=== PATIENT | male | born 1935 | race Caucasian/White ===

== ENCOUNTER 2016-12-31 07:09 | Observation (INO) | payer MEDICARE, BC ==
[~2016-12-31] VITALS: Ht 172.7 cm; Wt 65.0 kg
[2016-12-31] VITALS (8 sets, daily range): BP systolic 138–164; BP diastolic 60–78; PULSE 57–63; RESP 17–19; TEMP 98.1; Ht 172.7 cm; Wt 65.0 kg
--- NOTE | 2016-12-31 07:38 | ERA ---
ER Documentation Chief Complaint Date/Time DATE: 12/31/16 TIME: 07:28 Chief Complaint chest pain started this morning radiates to lower legs HPI 81-year-old male with a history of hypertension, dyslipidemia, coronary artery disease status post CABG and PCI presents to the emergency department via rescue ambulance for evaluation of chest pain. This morning he was drinking a glass of cold water when he experienced acute onset of sharp, severe left-sided chest pain which radiated down to his legs and caused him to fall to his knees. No accompanying shortness of breath, nausea, vomiting or diaphoresis. Paramedics administered aspirin and sublingual nitroglycerin which resulted in mild hypotension which is since resolved. No chest pain currently. Denies leg pain or swelling. No PND, orthopnea or exertional dyspnea. Patient reports that he was in his usual state of health until several weeks ago when he began to experience unsteadiness while walking and feels as though his legs are rubbery. Denies visual changes, focal weakness or numbness. No abdominal pain or low back pain. Denies dysuria, polyuria hematuria. No URI symptoms or cough. No fevers or chills. Ex- arrived somewhat later clarified the history. She states that patient was doing some heavy exertion and then went inside to have a drink of water and chest pain began. ROS All systems reviewed and are negative except as per history of present illness. Allergies Allergies: Coded Allergies: No Known Allergy (Unverified , 12/31/16) PMhx/Soc Reviewed in chart. As per HPI History of Surgery: Yes (CABG, PCI, exploratory laparotomy) Hx Neurological Disorder: No Hx Respiratory Disorders: No Hx Cardiac Disorders: Yes (Coronary artery disease, hypertension) Hx Psychiatric Problems: No Hx Miscellaneous Medical Probl: Yes (Hyperlipidemia) Hx Alcohol Use: No Hx Substance Use: No Hx Tobacco Use: No FmHx No diabetes, coronary artery disease, stroke or cancer Physical Exam Vitals Vital Signs Date Time Temp Pulse Resp B/P Pulse Ox O2 Delivery O2 Flow Rate FiO2 12/31/16 10:00 98.1 63 14 132/72 99 Room Air 12/31/16 08:00 98.2 60 12 127/69 99 Room Air 12/31/16 07:13 98.1 66 18 80/45 99 Physical Exam Const: Alert, elderly, no acute distress Head: Atraumatic Eyes: Pupils equal reactive to light, extraocular movements intact normal Conjunctiva ENT: Normal External Ears, Nose and Mouth. Neck: Full range of motion. Nontender. No JVD. Resp: Breath sounds are equal and clear to auscultation bilaterally Cardio: Regular rate and rhythm, no murmurs Chest Wall: Status post median sternotomy. Nontender. Abd: Soft, non tender, non distended. Normal bowel sounds Skin: No petechiae or rashes Back: No midline or flank tenderness Ext: No cyanosis, or edema. Pulses 4+ in all extremities. No calf swelling or tenderness. Neur: Awake and alert. Cranial nerves II through XII are grossly intact. Motor and sensory equal bilaterally. Psych: Normal Mood and Affect Result Diagram: 12/31/1621 12/31/16 0721 Results 24 hrs Laboratory Tests Test 12/31/16 07:21 White Blood Count 4.510^3/ul Red Blood Count 3.7910^6/ul Hemoglobin 11.6g/dl Hematocrit 35.8% Mean Corpuscular Volume 94.5fl Mean Corpuscular Hemoglobin 30.6pg Mean Corpuscular Hemoglobin Concent 32.4g/dl Red Cell Distribution Width 13.6% Platelet Count 03913^3/UL Mean Platelet Volume 10.3fl Neutrophils % 66.8% Lymphocytes % 19.6% Monocytes % 9.1% Eosinophils % 3.6% Basophils % 0.7% Nucleated Red Blood Cells % 0.0/100WBC Neutrophils # 3.010^3/ul Lymphocytes # 0.910^3/ul Monocytes # 0.410^3/ul Eosinophils # 0.210^3/ul Basophils # 0.010^3/ul Nucleated Red Blood Cells # 0.010^3/ul Prothrombin Time 13.7Sec Prothrombin Time Ratio 1.1 INR International Normalized Ratio 1.05 Activated Partial Thromboplast Time 27.5Sec Sodium Level 141mmol/L Potassium Level 4.5mmol/L Chloride Level 103mmol/L Carbon Dioxide Level 27mmol/L Anion Gap 16 Blood Urea Nitrogen 19mg/dl Creatinine 0.90mg/dl Glucose Level 102mg/dl Calcium Level 9.0mg/dl Magnesium Level 2.1mg/dl Total Bilirubin 0.3mg/dl Direct Bilirubin 0.00mg/dl Indirect Bilirubin 0.3mg/dl Aspartate Amino Transf (AST/SGOT) 20IU/L Alanine Aminotransferase (ALT/SGPT) 28IU/L Alkaline Phosphatase 66IU/L Troponin I < 0.012ng/ml Total Protein 6.6g/dl Albumin 3.7g/dl Globulin 2.90g/dl Albumin/Globulin Ratio 1.27 Thyroid Stimulating Hormone (TSH) 1.820MIU/L Current Medications Medications (Trade) Dose Ordered Sig/Luis Route PRN Reason Start Time Stop Time Status Last Admin Dose Admin Insulin Human Lispro (Humalog) 10 unit ONCE STAT SC 12/31/16 10:10 12/31/16 10:11 Cancel Ondansetron HCl (Zofran Inj) 4 mg ER BRIDGE PRN IV NAUSEA AND/OR VOMITING 12/31/16 12:00 01/01/17 11:59 Acetaminophen (Tylenol Tab) 650 mg ER BRIDGE PRN PO MILD PAIN/FEVER 12/31/16 12:00 01/01/17 11:59 EKG: TIME: 07:36. Sinus rhythm. Ventricular rate 65, normal UT and QRS intervals. No acute ST segment elevation or depression. No axis deviation or ectopy. EP Impression: Normal EKG EKG: TIME: 08:34. IMAGING: PROCEDURE: XR Chest. CLINICAL INDICATION: chest pain TECHNIQUE: Single frontal view of the chest was obtained COMPARISON: None FINDINGS: The heart and mediastinum are within normal limits. The patient is status post sternotomy. The lungs are clear. There is no pleural effusion or pneumothorax. RPTAT: AA IMPRESSION: No acute disease. .Pelon Sarmiento MD, MD Date Time Electronically viewed and signed by .Pelon Sarmiento MD, on 12/31/2016 08: 37 .S/ Procedures/MDM DOCUMENTS REVIEWED: ED nurse, no prior records MEDICAL DECISION MAKIN-year-old male with a history of hypertension, dyslipidemia, coronary artery disease status post CABG and PCI presents to the emergency department via rescue ambulance for evaluation of chest pain. No acute ischemic EKG changes or elevated troponin. Doubt pulmonary embolism or aortic dissection. No radiographic evidence of pneumonia or pneumothorax. Considering the patient's extensive cardiac history he will be admitted for serial ECGs, troponins, cardiology consultation and further risk stratification. Counseled patient and family regarding diagnosis, diagnostic results and plan for admission. CALLS/CONSULTS: Time 09:45, Dr. Rojo, Recommends admission to telemetry. PATIENT CARE TRANSITIONED: Time: 09:45, Dr. Rojo. Departure Diagnosis: Primary Impression: Acute chest pain Additional Impressions: Chest pain with moderate risk of acute coronary syndrome Hx of CABG Hx of heart artery stent Essential hypertension Dyslipidemia Condition: Serious LEATHA DUFFY MD Dec 31, 2016 07:38
[2016-12-31 08:18] LABS: BASOPHILS % 0.7 % (0.0-2.0); EOSINOPHILS # 0.2 10^3/ul (0.0-0.5); EOSINOPHILS % 3.6 % (0.0-7.0); HEMATOCRIT 35.8 % (42.0-52.0); HEMOGLOBIN 11.6 g/dl (14.0-18.0); LYMPHOCYTES # 0.9 10^3/ul (0.8-2.9); LYMPHOCYTES % 19.6 % (15.0-51.0); MEAN CORPUSCULAR HEMOGLOBIN 30.6 pg (29.0-33.0); MEAN CORPUSCULAR HGB CONC 32.4 g/dl (32.0-37.0); MEAN CORPUSCULAR VOLUME 94.5 fl (82.0-101.0); MEAN PLATELET VOLUME 10.3 fl (7.4-10.4); MONOCYTE # 0.4 10^3/ul (0.3-0.9); MONOCYTES % 9.1 % (0.0-11.0); NEUTROPHILS % 66.8 % (39.0-77.0); PLATELET COUNT 137 10^3/UL (140-415); RED BLOOD COUNT 3.79 10^6/ul (4.70-6.10); RED CELL DISTRIBUTION WIDTH 13.6 % (11.5-14.5); WHITE BLOOD COUNT 4.5 10^3/ul (4.8-10.8)
[2016-12-31 08:37] LABS: ALANINE AMINOTRANSFERASE 28 IU/L (13-69); ALBUMIN 3.7 g/dl (3.3-4.9); ALBUMIN/GLOBULIN RATIO 1.27; ALKALINE PHOSPHATASE 66 IU/L (42-121); ANION GAP 16 (8-16); ASPARTATE AMINO TRANSFERASE 20 IU/L (15-46); BILIRUBIN,INDIRECT 0.3 mg/dl (0-1.1); BILIRUBIN,TOTAL 0.3 mg/dl (0.2-1.3); BLOOD UREA NITROGEN 19 mg/dl (7-20); CARBON DIOXIDE 27 mmol/L (21-31); CHLORIDE 103 mmol/L (97-110); GLUCOSE 102 mg/dl (70-220); POTASSIUM 4.5 mmol/L (3.5-5.1); SODIUM 141 mmol/L (135-144); TOTAL PROTEIN 6.6 g/dl (6.1-8.1)
--- NOTE | 2016-12-31 08:37 | RADRPT ---
PROCEDURE: XR Chest. CLINICAL INDICATION: chest pain TECHNIQUE: Single frontal view of the chest was obtained COMPARISON: None FINDINGS: The heart and mediastinum are within normal limits. The patient is status post sternotomy. The lungs are clear. There is no pleural effusion or pneumothorax. RPTAT: AA IMPRESSION: No acute disease. .Pelon Sarmiento MD, MD Date Time Electronically viewed and signed by .Pelon Sarmiento MD, on 12/31/2016 08:37 .S/
[2016-12-31 08:48] LABS: INR 1.05; PARTIAL THROMBOPLASTIN TIME 27.5 Sec (25.0-35.0); PROTIME 13.7 Sec (12.2-14.2); PT RATIO 1.1
[2016-12-31 08:57] LABS: TROPONIN-I < 0.012 ng/ml (0.00-0.12)
[2016-12-31] MEDS ORDERED: INSULIN LISPRO 100 UNIT/ML VIAL SC STA (10:10)
[2016-12-31 10:16] LABS: MAGNESIUM 2.1 mg/dl (1.7-2.5)
[2016-12-31 10:47] LABS: THYROID STIMULATING HORMONE 1.82 MIU/L (0.465-4.680)
[2016-12-31] MEDS ORDERED: ONDANSETRON 4 MG INJ IV PRN ×2 (12:00→12:30)
[2016-12-31] MEDS ORDERED: ACETAMINOPHEN 325 MG TAB PO PRN ×2 (12:00→12:30)
[2016-12-31] MEDS ORDERED: NITROGLYCERIN (SL) 0.4 MG TAB SL PRN (12:30)
[2016-12-31] MEDS ORDERED: DOCUSATE SODIUM 100 MG CAP PO PRN (12:30)
[2016-12-31] MEDS ORDERED: NACL 0.9% 3 ML SYG IV SCH (12:30)
[2016-12-31] MEDS ORDERED: morphine 4 MG/ML VIAL IV PRN (12:30)
[2016-12-31] MEDS ORDERED: ACETAMINOPHEN 650 MG SUPP PR PRN (12:30)
[2016-12-31] MEDS ORDERED: hydrALAzine 20 MG INJ IV PRN (12:30)
--- NOTE | 2016-12-31 12:35 | HP ---
Date/Time of Note Date/Time of Note DATE: 12/31/16 TIME: 12:26 Assessment/Plan VTE Prophylaxis VTE Prophylaxis Intervention: LMWH Lines/Catheters IV Catheter Type (from [facility]): Saline Lock Assessment/Plan Assessment/Plan This is a 81-year-old male who was brought to the emergency room by paramedics for evaluation of chest pain with progressive bilateral lower extremity numbness and weakness. 1. Chest pain, rule out ACS versus other. -Admit to telemetry. Rule out ACS with serial troponin, 2D echocardiogram, serial EKG. Also obtain cardiology consult based on risk factors. -Start aspirin, nitroglycerin sublingual PRN, morphine PRN, and hydralazine PRN for SBP greater than 160. 2. Lower extremity numbness/weakness, likely peripheral neuropathy. Patient also reported that he had history of bilateral carotid stenosis and status post left endarterectomy. -Obtain carotid duplex, vitamin D level and B12. 3. Essential hypertension. -Resume home medications once list is obtained. For now, he will be treated with hydralazine PRN 3. Coronary artery disease, status post CABG, PCI. -Continue aspirin for now. Will resume home medications once obtained. 4. Hypercholesterolemia. -We will resume home medications. Obtain lipid panel. DVT prophylaxis: Lovenox PUD prophylaxis: Pepcid. Plan: Patient will be admitted to telemetry. He will be started on a diet. We will rule out acute coronary syndrome. Follow-up with carotid ultrasound to find out the status of flow as patient is experiencing numbness and tingling. Follow-up with a.m. labs. Follow-up with cardiology recommendations. Rest of the management depend on clinical course, further studies and input from consultant education. Approximately 60 minutes was spent on this history and physical. Case discussed with . 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 According to the patient, his symptoms started off with a sharp left-sided chest pain with left leg weakness and numbness this morning while he was attempting to drink a glass of cold water. Patient has been having progressive bilateral lower extremity burning, tingling and numbness and he was supposed to see his primary care physician today for evaluation. Patient denied nausea, vomiting, palpitation, abdominal discomfort ,shortness of breath, edema, orthopnea, exertional dyspnea or PND. He denied any fever or chills. Patient also denied any loss of consciousness, dizziness, headache, speech difficulties, or any focal deficit. Initial labs within acceptable range. Troponin was negative. Initial vital signs temperature 98.1, pulse rate 66, respiratory rate 18, blood pressure 80/45 , oxygen saturation 99%. Of note, blood pressure drop noticed post patient was given aspirin and nitro by EMS. Repeat blood pressure showed 127/69. Twelve- lead EKG with sinus rhythm without any acute ST or T-wave changes. Chest x-ray negative for any acute cardiopulmonary disease. Patient was admitted for further evaluation. ROS A 12 point review of system was assessed and is negative other than what is mentioned in HPI. PMH/Family/Social Past Medical History See HPI Past Surgical History See HPI Social History Denied smoking, alcohol or illicit drug use. Smoking Status: Never smoker Exam/Review of Systems Vital Signs Vitals Vital Signs Date Time Temp Pulse Resp B/P Pulse Ox O2 Delivery O2 Flow Rate FiO2 12/31/16 10:00 98.1 63 14 132/72 99 Room Air Exam Exam General: Elderly male, not in any acute distress . HEENT: Normocephalic, Atraumatic, No laceration or hematoma; Eyes: PEERL, Conjunctiva clear, Anicteric sclera Neck: Supple without any lymphadenopathy, nontender, no JVD, no carotid bruits, trachea midline, no thyromegaly Cardiac: S1, S2 auscultated, regular rhythm and rate, no mumurs or gallop Pulmonary: Normal respiratory effort. Chest clear to auscultation bilaterally, no adventitious breath sounds GI: Abdomen normal to inspection. Soft, non tender, non- distended, no masses, no rebound tenderness or guarding. Bowel sounds active on all four quadrants Genitourinary: Deferred Extremities: No cyanosis, clubbing, or edema. Pulses [2+] bilaterally. Full ROM on all four extremities. No focal weakness appreciated. Neurologic: Alert to person, place, time, and situation. Affect appropriate, intact sensation. Skin: Clean,dry, and intact. No ecchymosis, no rashes, or lesions Labs Result Diagram: 12/31/1672012/31/16 0721 KRYSTINA PEARSON NP Dec 31, 2016 12:35 KRYSTINA PEARSON NP Dec 31, 2016 12:35
--- NOTE | 2016-12-31 13:09 | CONS ---
Date/Time of Note Date/Time of Note DATE: 12/31/16 TIME: 13:05 Assessment/Plan Assessment/Plan Chief Complaint/Hosp Course Assessment: Chest pain Coronary artery disease, status post CABG and PCI - details unknown Hypertension Dyslipidemia Carotid disease - status post stenting on left, right is chronically occluded Recommendations: -telemetry monitoring -serial troponins -transthoracic echocardiogram -if ruled out for myocardial infarction, will defer repeat coronary evaluation as patient reports having normal cardiac stress test last year -continue aspirin 81mg daily -continue atorvastatin 40mg daily -continue amlodipine 5mg BID, carvedilol 12.5mg BID, losartan 100mg daily Problems: Consultation Date/Type/Reason Admit Date/Time Type of Consultation: Cardiology Reason for Consultation chest pain Hx of Present Illness The patient is a 81 year-old male who presents with chest pain. He reports having a sharp left-sided chest pain while taking out the garbage this morning. This was associated with left upper and lower extremity weakness and numbness. His symptoms lasted for several seconds and then resolved. He denies shortness of breath or exertional symptoms. He has a history of CABG and PCI, but he does not recall the details. He reports having a cardiac stress test last year, which was normal. 14 point review of systems negative other than per HPI. Past Medical History Coronary artery disease, status post CABG and PCI - details unknown Hypertension Dyslipidemia Carotid disease - status post stenting on left, right is chronically occluded Past Surgical History CABG Family History Significant Family History: no pertinent family hx Social History Alcohol Use: none Smoking Status: Never smoker Drug Use: none Exam/Review of Systems Vital Signs Vitals Vital Signs Date Time Temp Pulse Resp B/P Pulse Ox O2 Delivery O2 Flow Rate FiO2 12/31/16 12:50 97.8 63 17 157/78 98 Room Air Exam Constitutional: alert, well developed Psych: nl mood/affect, no complaints Head: atraumatic, normocephalic Eyes: nl conjunctiva, nl lids ENMT: nl external ears & nose, nl nasal mucosa & septum Neck: non-tender, supple Respiratory: clear to auscultation, normal air movement Cardiovascular: regular rate and rhythm Gastrointestinal: non-tender, soft Musculoskeletal: nl extremities to inspection Extremities: No clubbing, No cyanosis, No edema Neurological: nl mental status, nl speech Skin: nl turgor Results Result Diagram: 12/31/16 0721 12/31/16 0721 Results 24 hrs Laboratory Tests Test 12/31/16 07:21 White Blood Count 4.5 L Red Blood Count 3.79 L Hemoglobin 11.6 L Hematocrit 35.8 L Mean Corpuscular Volume 94.5 Mean Corpuscular Hemoglobin 30.6 Mean Corpuscular Hemoglobin Concent 32.4 Red Cell Distribution Width 13.6 Platelet Count 137 L Mean Platelet Volume 10.3 Neutrophils % 66.8 Lymphocytes % 19.6 Monocytes % 9.1 Eosinophils % 3.6 Basophils % 0.7 Nucleated Red Blood Cells % 0.0 Neutrophils # 3.0 Lymphocytes # 0.9 Monocytes # 0.4 Eosinophils # 0.2 Basophils # 0.0 Nucleated Red Blood Cells # 0.0 Prothrombin Time 13.7 Prothrombin Time Ratio 1.1 INR International Normalized Ratio 1.05 Activated Partial Thromboplast Time 27.5 Sodium Level 141 Potassium Level 4.5 Chloride Level 103 Carbon Dioxide Level 27 Anion Gap 16 Blood Urea Nitrogen 19 Creatinine 0.90 Glucose Level 102 Calcium Level 9.0 Magnesium Level 2.1 Total Bilirubin 0.3 Direct Bilirubin 0.00 Indirect Bilirubin 0.3 Aspartate Amino Transf (AST/SGOT) 20 Alanine Aminotransferase (ALT/SGPT) 28 Alkaline Phosphatase 66 Troponin I < 0.012 Total Protein 6.6 Albumin 3.7 Globulin 2.90 Albumin/Globulin Ratio 1.27 Thyroid Stimulating Hormone (TSH) 1.820 Medications Medications Current Medications Ondansetron HCl (Zofran Inj) 4 mg Q6H PRN IV NAUSEA AND/OR VOMITING; Start 12/31 at 12:30 Acetaminophen (Tylenol Tab) 650 mg Q6H PRN PO PAIN LEVEL 1-3 OR FEVER; Start at 12:30 Acetaminophen (Tylenol Supp) 650 mg Q6H PRN SD PAIN LEVEL 1-3 OR FEVER; Start 12/31/16 at 12:30 Morphine Sulfate (morphine) 2 mg Q4H PRN IV SEVERE PAIN LEVEL 7-10; Start at 12:30 Docusate Sodium (Colace) 100 mg Q12H PRN PO CONSTIPATION; Start 12/31/16 at 12: 30 Famotidine (Pepcid) 20 mg Q12 PO ; Start 12/31/16 at 14:00 Enoxaparin Sodium (Lovenox) 40 mg DAILY SC ; Start 12/31/16 at 14:00 Aspirin (Aspirin) 81 mg DAILY PO ; Start 12/31/16 at 14:00 Nitroglycerin (Nitroglycerin (Sl Tab) 0.4 Mg) 1 tab Q5M PRN SL ANGINA; Start at 12:30 Hydralazine HCl (Apresoline) 10 mg Q6H PRN IV sbp>160; Start 12/31/16 at 12:30 TATI MATHEWS MD Dec 31, 2016 13:09
[2016-12-31 14:17] LABS: CREATINE KINASE 29 IU/L (23-200)
[2016-12-31 14:31] LABS: CK-MB 0.58 ng/ml (0.0-2.4); TROPONIN-I < 0.012 ng/ml (0.00-0.12)
[2016-12-31] MEDS: FAMOTIDINE 20 MG TAB PO SCH ×2 (14:42→21:41)
[2016-12-31] MEDS: ASPIRIN 81 MG TAB PO SCH (14:42)
[2016-12-31] MEDS: ENOXAPARIN 40 MG/0.4 ML SYG SC SCH (14:43)
--- NOTE | 2016-12-31 14:45 | RADRPT ---
PROCEDURE: US Carotids. CLINICAL INDICATION: bruit , tingling/numbness on extremities TECHNIQUE: Multiple sonographic of the carotid bifurcation region and vertebral arteries were obta ined utilizing fox scale, duplex and color-flow imaging. The images were reviewed on a PACS worksta tion. COMPARISON: No prior studies are available for comparison. FINDINGS: Evaluation of the right carotid bifurcation region reveals moderate calcific atherosclerotic disease . Evaluation of the left carotid bifurcation region reveals mild to moderate calcific atherosclerotic disease. There is antegrade flow within the vertebral arteries bilaterally. RIGHT CAROTID MEASUREMENTS: Common Carotid Kvlqit99.9 (cm/sec) Internal Carotid Artery - occluded LEFT CAROTID MEASUREMENTS: Common Carotid Loaqxu89.1 (cm/sec) Internal Carotid Artery - (cm/sec) Internal Carotid Artery - mid67.4 (cm/sec) Internal Carotid Artery - swlapn27.2 (cm/sec) Internal Carotid/Common Carotid1.22 RPTAT: AA IMPRESSION: Occluded right ICA. - validated velocity measurements with angiographic measurements, velocity crite jolie are extrapolated from diameter data as defined by the Society of Radiologists in Ultrasound Cons ensus Conference Radiology 2003; 229;340-346. This study does indirectly reference the measurement of the distal ICA diameter as the denominator for stenosis measurement. Normal antegrade flow in the vertebral arteries bilaterally. Further evaluation with a CT angiogram is recommended. .Pelon Sarmiento MD, MD Date Time Electronically viewed and signed by .Pelon Sarmiento MD, MD on 12/31/2016 14:45 .S/
[2016-12-31] MEDS ORDERED: AMLO2.5T78 PO (14:53)
[2016-12-31] MEDS ORDERED: ASPI81TA3 PO (14:53)
[2016-12-31] MEDS ORDERED: CLON-379 PO (14:53)
[2016-12-31] MEDS ORDERED: ATOR10TA65 PO (14:53)
[2016-12-31] MEDS ORDERED: LOSA100T7 PO (14:53)
[2016-12-31] MEDS ORDERED: CARV12.579 PO (14:53)
[2016-12-31 20:31] LABS: CREATINE KINASE 24 IU/L (23-200)
[2016-12-31 20:40] LABS: CK-MB 0.75 ng/ml (0.0-2.4); TROPONIN-I < 0.012 ng/ml (0.00-0.12)
[2016-12-31] MEDS ORDERED: ATORVASTATIN 40 MG TAB PO SCH (21:00)
[2016-12-31] MEDS: AMLODIPINE 5 MG TAB PO SCH (21:41)
[2017-01-01 00:32] VITALS: PULSE 61
[2017-01-01 04:14] VITALS: PULSE 55
[2017-01-01 07:27] LABS: BASOPHILS % 0.6 % (0.0-2.0); EOSINOPHILS # 0.1 10^3/ul (0.0-0.5); EOSINOPHILS % 1.7 % (0.0-7.0); HEMATOCRIT 37.4 % (42.0-52.0); HEMOGLOBIN 12.3 g/dl (14.0-18.0); LYMPHOCYTES # 0.9 10^3/ul (0.8-2.9); LYMPHOCYTES % 18.2 % (15.0-51.0); MEAN CORPUSCULAR HEMOGLOBIN 30.9 pg (29.0-33.0); MEAN CORPUSCULAR HGB CONC 32.9 g/dl (32.0-37.0); MONOCYTE # 0.5 10^3/ul (0.3-0.9); NEUTROPHIL # 3.2 10^3/ul (1.6-7.5); NEUTROPHILS % 69.3 % (39.0-77.0); PLATELET COUNT 131 10^3/UL (140-415); POSITIVE DIFF @See below; RED BLOOD COUNT 3.98 10^6/ul (4.70-6.10); RED CELL DISTRIBUTION WIDTH 13.6 % (11.5-14.5); WHITE BLOOD COUNT 4.7 10^3/ul (4.8-10.8)
[2017-01-01 07:51] LABS: ALBUMIN 3.8 g/dl (3.3-4.9); ALBUMIN/GLOBULIN RATIO 1.35; BILIRUBIN,INDIRECT 0.4 mg/dl (0-1.1); BILIRUBIN,TOTAL 0.4 mg/dl (0.2-1.3); CHOL/HDL RATIO 4.2 RATIO; CREATININE 0.79 mg/dl (0.61-1.24); POTASSIUM 4.4 mmol/L (3.5-5.1); TOTAL PROTEIN 6.6 g/dl (6.1-8.1)
[2017-01-01 08:09] VITALS: PULSE 60
[2017-01-01] MEDS: AMLODIPINE 5 MG TAB PO SCH (08:10)
[2017-01-01] MEDS: FAMOTIDINE 20 MG TAB PO SCH (08:10)
[2017-01-01] MEDS: ASPIRIN 81 MG TAB PO SCH (08:10)
[2017-01-01 08:12] VITALS: BP 159/72; RESP 17
[2017-01-01] MEDS: ENOXAPARIN 40 MG/0.4 ML SYG SC SCH (08:12)
[2017-01-01] MEDS ORDERED: LOSARTAN 50 MG TAB PO SCH (09:00)
[2017-01-01 09:19] LABS: THYROID STIMULATING HORMONE 1.11 MIU/L (0.465-4.680)
--- NOTE | 2017-01-01 09:52 | PDOCDIS ---
Discharge Instructions CONDITION Patient Condition: Stable HOME CARE INSTRUCTIONS: Diet Instructions: Low Fat /Cholesterol FOLLOW UP/APPOINTMENTS Follow-up Plan 1.Follow up with primary care physician in 1 week If you don't have one please let someone know, we can give you resources that may help you pick one. You may also call your insurance company to assign one to you. Review your medication list with your nurse before leaving and if you need new prescriptions please let your nurse know. I may have made changes to your home medications or given you new prescriptions, please let your primary doctor know as well. Stay compliant with your medications and report any side effects to your PCP or pharmacist. Return to the ER if you have any concerns and cannot reach your doctors or call your insurance company, they usually have a nurse that can help you. 2. Call 911 or go to the nearest emergency room if experiencing loss of consciousness, dizziness, chest pain, shortness of breath, vomiting/abdominal pain, speech difficulties, motor weakness or any unusual symptoms. KRYSTINA PEARSON NP Jan 01, 2017 09:52
[2017-01-01] MEDS ORDERED: CHOL100062 PO (09:55)
[2017-01-01] MEDS ORDERED: ERGO500037 PO (09:59)
--- NOTE | 2017-01-01 10:53 | DS ---
Date/Time of Note Date/Time of Note DATE: 01/01/17 TIME: 10:49 Discharge Summary Admission/Discharge Info Admit Date/Time Dec 31, 2016 at 12:30 Discharge Date/Time Discharge Diagnosis Chest pain, noncardiac. 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 Coronary artery disease, status post CABG and PCI - details unknown MVR, bioprosthesis Hypertension Dyslipidemia Bilateral carotid disease - status post left endarterectomy, right is chronically occluded Patient Condition: Stable Consults ,cardiology Procedures 12/31/2016. Ultrasound carotid. Occluded right ICA. - validated velocity measurements with angiographic measurements, velocity criteria are extrapolated from diameter data as defined by the Society of Radiologists in Ultrasound Consensus Conference Radiology 2003 ; 229;340-346. This study does indirectly reference the measurement of the distal ICA diameter as the denominator for stenosis measurement. Normal antegrade flow in the vertebral arteries bilaterally. 12/31/2016. Chest x-ray. No acute disease. 12/31/2016. 2D echocardiogram Conclusions 1. The left ventricle is normal in size with normal overall systolic function. The inferolateral wall is hypokinetic. 2. Estimated left ventricular ejection fraction of 55%. 3. Mitral valve bioprosthesis with normal function. 4. Mild left atrial enlargement. Hospital Course This is a 81-year-old male with a past medical history of coronary artery disease, status post CABG, PTCA with stents post CABG, hypercholesterolemia, essential hypertension, carotid artery disease with 100% occluded right carotid artery, left endarterectomy, explored lap, who presented to the emergency room with complaints of left-sided chest pain associated with left leg weakness and numbness. Patient has been having progressive bilateral lower extremity burning, tingling and numbness and was supposed to see his primary care provider for evaluation. However he noticed chest pain in the morning and decided to come to the emergency room for evaluation. Chest pain was not associated with any exertion or activities. There was no shortness of breath. Patient denied any focal neuro deficit or other constitutional symptoms. Initial troponin was negative. Vital signs within acceptable range. EKG without any ST or T-wave changes. Chest x-ray negative for any acute cardiopulmonary disease. Patient was admitted for ruling out ACS. A cardiology consultation was requested due to high risk factors. He was continued on aspirin, nitroglycerin sublingual PRN and morphine PRN. Home medications resumed. Patient was started on a diet. He was given pain medications as needed. Serial troponin, serial EKG negative for any ischemic events. 2D echocardiogram was repeated. A carotid ultrasound revealed occluded right carotid artery which is chronic in nature. Patient was evaluated by cardiology and determined his symptoms were noncardiac in origin. There was no recommendation for further coronary evaluation as he had a negative Lexiscan stress test which was an year ago. A repeat TTE with preserved ejection fraction. Echocardiogram also revealed presence of bile mitral valve prosthesis which functions normally. Labs revealed a low vitamin D level and this could explain his neuropathic sensation on lower extremities. Chest pain was resolved. Acute coronary syndrome ruled out. As per cardiology , patient is stable for discharge. At this time, patient feels back to baseline and no further inpatient workup is indicated. Disposition: Patient will be discharged home today. She was he was instructed to follow-up with his primary care provider. He was started on vitamin D supplement and was instructed to follow-up with his primary care physician in 1 month to repeat vitamin D level and to adjust dose as indicated. Patient verbalized discharge instructions. Condition at time of discharge is stable. Approximately 60 minutes was spent in coordinating the discharge on this patient. Case discussed with . Home Meds Active Scripts Ergocalciferol (Vitamin D2) (VITAMIN D2) 50,000 Unit Capsule, [address] UNIT PO .EVERY FRIDAY, #4 CAP 2 Refills Prov:KRYSTINA PEARSON Heydi [employer] 01/01/17 Reported Medications Clonidine Hcl* (Clonidine Hcl*) 0.1 Mg Tab, 0.1 MG PO Q1HR Y for ELEVATED BLOOD PRESSURE, TAB 12/31/16 Atorvastatin Calcium (Atorvastatin Calcium) 10 Mg Tablet, 40 MG PO QHS, #30 TAB 12/31/16 Losartan Potassium* (Losartan Potassium*) 100 Mg Tablet, 100 MG PO DAILY, TAB 12/31/16 Aspirin* (Aspirin* Chew) 81 Mg Tab.chew, 81 MG PO DAILY, TAB.CHEW 12/31/16 Carvedilol* (Carvedilol*) 12.5 Mg Tablet, 12.5 MG PO BID, #60 TAB 12/31/16 Amlodipine Besylate* (Amlodipine Besylate*) 2.5 Mg Tablet, 5 MG PO BID, #30 TAB 12/31/16 Follow-up Plan FOLLOW UP/APPOINTMENTS Follow-up Plan 1.Follow up with primary care physician in 1 week If you don't have one please let someone know, we can give you resources that may help you pick one. You may also call your insurance company to assign one to you. Review your medication list with your nurse before leaving and if you need new prescriptions please let your nurse know. I may have made changes to your home medications or given you new prescriptions, please let your primary doctor know as well. Stay compliant with your medications and report any side effects to your PCP or pharmacist. Return to the ER if you have any concerns and cannot reach your doctors or call your insurance company, they usually have a nurse that can help you. 2. Call 911 or go to the nearest emergency room if experiencing loss of consciousness, dizziness, chest pain, shortness of breath, vomiting/abdominal pain, speech difficulties, motor weakness or any unusual symptoms. Primary Care Provider Not On Staff Doctor Pending Labs Laboratory Tests Test 12/31/16 13:43 12/31/16 19:46 01/01/17 05:00 01/01/17 07:03 Creatine Kinase 29IU/L (23-200) 24IU/L (23-200) Creatine Kinase Index 2.0 3.1 Creatinine Kinase MB (Mass) 0.58ng/ml (0.0-2.4) 0.75ng/ml (0.0-2.4) Troponin I < 0.012ng/ml (0.00-0.12) < 0.012ng/ml (0.00-0.12) Hemoglobin A1c 5.0% (0-5.9) White Blood Count 4.710^3/ul (4.8-10.8) Red Blood Count 3.9810^6/ul (4.70-6.10) Hemoglobin 12.3g/dl (14.0-18.0) Hematocrit 37.4% (42.0-52.0) Mean Corpuscular Volume 94.0fl (82.0-101.0) Mean Corpuscular Hemoglobin 30.9pg (29.0-33.0) Mean Corpuscular Hemoglobin Concent 32.9g/dl (32.0-37.0) Red Cell Distribution Width 13.6% (11.5-14.5) Platelet Count 58277^3/UL (140-415) Mean Platelet Volume 10.0fl (7.4-10.4) Neutrophils % 69.3% (39.0-77.0) Lymphocytes % 18.2% (15.0-51.0) Monocytes % 10.0% (0.0-11.0) Eosinophils % 1.7% (0.0-7.0) Basophils % 0.6% (0.0-2.0) Nucleated Red Blood Cells % 0.0/100WBC (0.0-0.0) Neutrophils # 3.210^3/ul (1.6-7.5) Lymphocytes # 0.910^3/ul (0.8-2.9) Monocytes # 0.510^3/ul (0.3-0.9) Eosinophils # 0.110^3/ul (0.0-0.5) Basophils # 0.010^3/ul (0.0-0.1) Nucleated Red Blood Cells # 0.010^3/ul (0.0-0.0) Sodium Level 141mmol/L (135-144) Potassium Level 4.4mmol/L (3.5-5.1) Chloride Level 104mmol/L (97-110) Carbon Dioxide Level 26mmol/L (21-31) Anion Gap 15 (8-16) Blood Urea Nitrogen 14mg/dl (7-20) Creatinine 0.79mg/dl (0.61-1.24) Glucose Level 90mg/dl (70-220) Calcium Level 9.0mg/dl (8.4-10.2) Phosphorus Level 3.0mg/dl (2.5-4.9) Magnesium Level 2.0mg/dl (1.7-2.5) Total Bilirubin 0.4mg/dl (0.2-1.3) Direct Bilirubin 0.00mg/dl (0.00-0.20) Indirect Bilirubin 0.4mg/dl (0-1.1) Aspartate Amino Transf (AST/SGOT) 24IU/L (15-46) Alanine Aminotransferase (ALT/SGPT) 32IU/L (13-69) Alkaline Phosphatase 72IU/L (42-121) Total Protein 6.6g/dl (6.1-8.1) Albumin 3.8g/dl (3.3-4.9) Globulin 2.80g/dl (1.3-3.2) Albumin/Globulin Ratio 1.35 Triglycerides Level 101mg/dl (0-149) Cholesterol Level 144mg/dl (100-200) LDL Cholesterol, Calculated 90mg/dl HDL Cholesterol 34mg/dl (31-75) Cholesterol/HDL Ratio 4.2RATIO Vitamin B12 Level 538pg/ml (239-931) Vitamin D 1,25-Dihydroxy 20.2ng/ml (30-100) Thyroid Stimulating Hormone (TSH) 1.110MIU/L (0.465-4.680) KRYSTINA PEARSON NP Jan 01, 2017 10:53
[2017-01-01] MEDS ORDERED: ERGOCALCIFEROL 50,000 UNIT CAP PO SCH (12:00)
[2017-01-01 12:08] VITALS: PULSE 60
[2017-01-01 12:11] VITALS: BP 108/56; RESP 17
--- NOTE | 2017-01-01 14:06 | RADRPT ---
Echocardiogram Report Patient Name: LANCE SINGLETON Gender: Male Date: 1935 Study Date: 31-Dec-2016 Putty Remover: Dylan Lora [facility] Location: [id number] Ref. Physician: KRYSTINA PEARSON Quality: Good Procedures: Transthoracic echocardiogram with complete 2D, M-Mode, and doppler examination. Indications: Chest Pain. 2D/M Mode Doppler Measurement Value Normal Ranges Measurement Value Normal Ranges LVIDd 2D 4.2 3.5 - 5.6 cm ALBERTO Vmax 2.2 cm2 LVIDs 2D 3.5 2.1 - 4.1 cm ALBERTO VTI 2.2 cm2 LVPWd 2D 1.1 0.6 - 1.1 cm AV Peak Ashish 1.2 m/sec IVSd 2D 1.0 0.6 - 1.1 cm AV Peak PG 5.4 mmHg AoR Diam 2D 3.5 2.0 - 3.7 cm AI Peak PG 21.3 mmHg EDV 2D 79.2 cm3 AI Peak Ashish 2.3 m/sec ESV 2D 41.2 cm3 AI PHT 491.9 msec LA Dimen 2D 3.8 2.3 - 4.0 cm LVOT Peak Ashish 0.6 m/sec LVOT Diam 2.2 cm LVOT Peak PG 1.6 mmHg MV E Peak Ashish 1.8 m/sec MV A Peak Ashish 0.4 m/sec MV E/A 4.1 MV Peak Ashish 1.9 m/sec MV Peak PG 14.5 mmHg MV Mean Ashish 0.9 m/sec MV Mean PG 4.2 mmHg MV Decel Time 289 msec MV Decel [place] 6 MV E/A 4.1 MV VTI 48.7 cm TR Peak Ashish 3.1 m/sec TR Peak PG 38.9 mmHg RVSP 42.0 mmHg Findings Left Ventricle: Normal left ventricular systolic function. Normal left ventricular cavity size. Ejection fraction is visually estimated at 55 %. Tissue Doppler/Mitral Doppler indices are indeterminate in this study due to the presence of mitral valve replacement. These segments of the LV are hypokinetic inferolateral mid segment. Right Ventricle: Normal right ventricular size. Normal right ventricular systolic function. Left Atrium: There is mild enlargement of left atrium. Right Atrium: The right atrium is normal in size. Mitral Valve: No mitral valve regurgitation is seen. Mitral Valve Bio Prosthesis. Mitral valve Max Velocity 1.90 m/sec. MaxPG 14.50 mmHg. MeanPG 4.20 mmHg. Aortic Valve: No hemodynamically significant aortic stenosis by doppler. Aortic cusps appear moderately calcified. Mild aortic valve regurgitation. Tricuspid Valve: Normal appearance of the tricuspid valve. Estimated peak PA systolic pressure 42 mmHg. There is mild tricuspid regurgitation. Pulmonic Valve: Normal pulmonic valve appearance. There is trace pulmonic regurgitation. Pericardium: Normal pericardium with no significant pericardial effusion. Aorta: Normal aortic root. IVC: Normal size and normal respiratory collapse consistent with normal right atrial pressure. Conclusions 1.The left ventricle is normal in size with normal overall systolic function. The inferolateral wall is hypokinetic. 2.Estimated left ventricular ejection fraction of 55%. 3.Mitral valve bioprosthesis with normal function. 4.Mild left atrial enlargement. Electronically Signed By: Evert Hammond 01-Jan-2017 14:05:31 -0700 Patient Name: LANCE SINGLETON Study Date: 31-Dec-2016 [id number]
--- NOTE | 2017-01-01 15:26 | CONS ---
Date/Time of Note Date/Time of Note DATE: 01/01/17 TIME: 15:24 Assessment/Plan Assessment/Plan Chief Complaint/Hosp Course Assessment: Chest pain - ruled out for myocardial infarction Coronary artery disease, status post CABG and PCI - details unknown Bioprosthetic mitral valve replacement - normal function on echocardiogram Hypertension Dyslipidemia Carotid disease - status post stenting on left, right is chronically occluded Recommendations: -echocardiogram showed LVEF 55% with inferolateral hypokinesis (consistent with coronary artery disease), mitral valve bioprosthesis with normal function -will defer repeat coronary evaluation as patient reports having normal cardiac stress test within past year, no further inpatient cardiac work up at this time -continue aspirin 81mg daily -continue atorvastatin 40mg daily -continue amlodipine 5mg BID, carvedilol 12.5mg BID, losartan 100mg daily Problems: Consultation Date/Type/Reason Admit Date/Time Dec 31, 2016 at 12:30 Initial Consult Date Type of Consultation: Cardiology 24 HR Interval Summary Free Text/Dictation No acute events. No further chest pain. Troponins negative x 3. Detailed Summary Additional Comments 14 point review of systems without changes. Exam/Review of Systems Vital Signs Vitals Vital Signs Date Time Temp Pulse Resp B/P Pulse Ox O2 Delivery O2 Flow Rate FiO2 01/01/17 12:11 98.1 63 17 108/56 97 12/31/16 18:32 Room Air Intake and Output 12/31/16 12/31/16 01/01/17 15:00 23:00 07:00 Intake Total 850 ml 400 ml Balance 850 ml 400 ml Exam Constitutional: alert, well developed Psych: nl mood/affect, no complaints Head: atraumatic, normocephalic Eyes: nl conjunctiva, nl lids ENMT: nl external ears & nose, nl nasal mucosa & septum Neck: non-tender, supple Respiratory: clear to auscultation, normal air movement Cardiovascular: regular rate and rhythm Gastrointestinal: non-tender, soft Musculoskeletal: nl extremities to inspection Extremities: No clubbing, No cyanosis, No edema Neurological: nl mental status, nl speech Skin: nl turgor Results Result Diagram: 01/01/17 0703 01/01/17 0703 Results 24 hrs Laboratory Tests Test 12/31/16 19:46 01/01/17 05:00 01/01/17 07:03 Creatine Kinase 24 Creatine Kinase Index 3.1 Creatinine Kinase MB (Mass) 0.75 Troponin I < 0.012 Hemoglobin A1c 5.0 White Blood Count 4.7 L Red Blood Count 3.98 L Hemoglobin 12.3 L Hematocrit 37.4 L Mean Corpuscular Volume 94.0 Mean Corpuscular Hemoglobin 30.9 Mean Corpuscular Hemoglobin Concent 32.9 Red Cell Distribution Width 13.6 Platelet Count 131 L Mean Platelet Volume 10.0 Neutrophils % 69.3 Lymphocytes % 18.2 Monocytes % 10.0 Eosinophils % 1.7 Basophils % 0.6 Nucleated Red Blood Cells % 0.0 Neutrophils # 3.2 Lymphocytes # 0.9 Monocytes # 0.5 Eosinophils # 0.1 Basophils # 0.0 Nucleated Red Blood Cells # 0.0 Sodium Level 141 Potassium Level 4.4 Chloride Level 104 Carbon Dioxide Level 26 Anion Gap 15 Blood Urea Nitrogen 14 Creatinine 0.79 Glucose Level 90 Calcium Level 9.0 Phosphorus Level 3.0 Magnesium Level 2.0 Total Bilirubin 0.4 Direct Bilirubin 0.00 Indirect Bilirubin 0.4 Aspartate Amino Transf (AST/SGOT) 24 Alanine Aminotransferase (ALT/SGPT) 32 Alkaline Phosphatase 72 Total Protein 6.6 Albumin 3.8 Globulin 2.80 Albumin/Globulin Ratio 1.35 Triglycerides Level 101 Cholesterol Level 144 LDL Cholesterol, Calculated 90 HDL Cholesterol 34 Cholesterol/HDL Ratio 4.2 Vitamin B12 Level 538 Vitamin D 1,25-Dihydroxy 20.2 L Thyroid Stimulating Hormone (TSH) 1.110 TATI MATHEWS MD Jan 01, 2017 15:26
--- NOTE | 2017-01-01 15:37 | RADRPT ---
Vent Rate: 63 bpm RR Interval: 0 msec DE Interval: 178 msec QRS Duration: 96 msec QT Interval: 462 msec QTC Interval: 472 msec P-R-T [place]: 87 - 12 - -4 degrees Normal sinus rhythm Prolonged QT Abnormal ECG Electronically Signed By: Dl Hooper [id number]
== END 2017-01-01 14:58 | disposition home or self-care (01) ==
LOC: E/R 07:09 → INTOOBSV 12:30 → MS4 12:30
PROVIDERS: ADMIT Internal Medicine; ATTEND Internal Medicine
DX: R07.9 Chest pain, unspecified (principal); I10 Essential (primary) hypertension; I25.10 Atherosclerotic heart disease of native coronary artery without angina pectoris; Z95.5 Presence of coronary angioplasty implant and graft; Z95.1 Presence of aortocoronary bypass graft; E78.5 Hyperlipidemia, unspecified; E78.00 Pure hypercholesterolemia, unspecified; E55.9 Vitamin D deficiency, unspecified; Z95.3 Presence of xenogenic heart valve; I65.21 Occlusion and stenosis of right carotid artery; Z98.890 Other specified postprocedural states; R20.0 Anesthesia of skin; R53.1 Weakness
CPT/HCPCS: 36415; 71010; 80053; 80061; 82550; 82553; 82607; 82652; 83036; 83735; 84100; 84443; 84484; 85025; 85610; 85730; 93005; 93306; 93880; 99285; G0378; J1650